=== PATIENT | male | born 1980 | race Caucasian/White ===

== ENCOUNTER 2017-03-11 14:39 | Emergency (ER) | payer OTHER ==
[~2017-03-11] VITALS: Ht 177.8 cm; Wt 76.8 kg
[2017-03-11 14:41] VITALS: BP 138/85; PULSE 75; RESP 22; O2SAT 97
[2017-03-11 16:38] LABS: BASOPHILS % (AUTO) 0.1 % (0-3); EOSINOPHILS % (AUTO) 0 % (0-5)
[2017-03-11] MEDS ORDERED: 0.9% Sodium Chloride 1,000 ML IV STA (16:44)
[2017-03-11] MEDS ORDERED: Ondansetron 2 mg/mL 2 mL Inj IVPUSH ONE (16:45)
[2017-03-11 16:48] LABS: Magnesium 2.1 mg/dL (1.6-2.6)
--- NOTE | 2017-03-11 16:48 | ED.REPORT ---
HPI-NVD Date of Service Mar 11, 2017 ED Provider: Adele Bhatt MD The patient is a 36 year old developmentally delayed male who is presenting to the ED with his mother complaining of frequent vomiting and abdominal pain onset last night. The patient claims that he took Pepto Bismol this morning and vomited 20 minutes later. After vomiting for several hours, the pt now has a bit of blood in his vomit as well. He was seen at 6 months ago with a negative work up (abd xray, CT and US) for similar symptoms. He denies dysuria, diarrhea, SOB, or wheezing. The patient lives in a fpc. Nursing Notes Stated Complaint: VOMITING Chief Complaint: Male Abdominal Pain Nursing Notes Reviewed: Yes Allergies: Coded Allergies: No Known Allergies (Unverified , 03/11/17) General Time Seen by MD: 16:16 Chief Complaint Vomiting Hx Obtained From: Patient, Other family... (Mother) Arrived By: Walk-in Onset Occurred: 5 - 8 hours ago Symptom Duration: Since onset Vomiting: Vomiting blood, Vomiting clear, Vomiting food Associated with: Reports: Abdominal pain Pertinent Negative: Pt denies other symptoms Recent Healthcare: No recent doctor visit, No recent hospitalization Similar Sx Previous: Yes Past Medical History Past Medical History Went to for vomiting with negative work up in August 2016 Past Surgical History denies Smoking History Unknown if Ever Smoker Social History Stays at a fpc Other Social History: Good social support Ambulatory Status Independent Review of Systems GI: Reports: Abdominal pain, Vomiting, Denies: Diarrhea Complete sys rev & neg: except as marked. Respiratory: Denies: Shortness of breath, Wheezing Male: Denies Dysuria Physical Exam Initial Vital Signs Vital Signs (First) Date Time Temp Pulse Resp B/P Pulse Ox O2 Delivery O2 Flow Rate FiO2 03/11/17 14:41 36.9 75 22 138/85 97 Room Air Initial VS: Reviewed, Vital signs normal Head / Eyes: Atraumatic, Normocephalic, PERRL Neck: Supple, Non-tender, Full range of motion Respiratory: Breath sounds normal, Clear to auscultation, No respiratory distress Back: No CVA tenderness Lymphatic: No lymphadenopathy Extremities: Vascular intact, Neuro intact, No swelling, No tenderness Skin: Warm, Dry, No cyanosis Neurologic: Alert, Oriented, Nonfocal Psychiatric: Mood/affect normal, Behavior normal, Normal thought content General/Constitutional: Awake, Alert, Well appearing Well perfused Developmentally delayed but cooperative Abdomen: Soft, Non-tender, McBurney's non-tender, No guarding, No rebound, BS normoactive, No distention, No hernia, No palpable mass Cardiovascular: Heart rate NL, Regular rhythm Heart Sounds / Murmur: Positive: Murmur present... (III/ systolic ejection murmur) Interpretation & Diagnostics Lab Results Interpretation Result Diagram: 03/11/17 1634 03/11/17 1634 Test 03/11/17 16:05 03/11/17 16:34 03/11/17 18:12 Hold Purple Top Tube Received (Received) Hold Blue Top Tube Received (Received) Hold Red Top Tube Received (Received) Hold [place] Top Tube Received (Received) Hold [place] Top Tube Received (Received) White Blood Count 13.5th/mm3 (3.8-10.1) Red Blood Count 5.54mil/mm3 (4.40-5.80) Hemoglobin 17.0g/dL (13.8-17.2) Hematocrit 46.6% (41.0-50.0) Mean Corpuscular Volume 84.1fL (81-100) Mean Corpuscular Hemoglobin 30.7pg (27.0-35.0) Mean Corpuscular Hemoglobin Concent 36.5% (32.0-37.0) Red Cell Distribution Width 12.9% (12.3-15.4) Platelet Count 209bil/L (150-400) Neutrophils (%) (Auto) 87.9% (40-74) Lymphocytes (%) (Auto) 5.9% (14-46) Monocytes (%) (Auto) 5.9% (4-12) Eosinophils (%) (Auto) 0% (0-5) Basophils (%) (Auto) 0.1% (0-3) Sodium Level 141mEq/L (134-144) Potassium Level 3.9mEq/L (3.5-5.2) Chloride Level 100mEq/L (97-108) Carbon Dioxide Level 24mmol/L (18-29) Blood Urea Nitrogen 16mg/dL (6-20) Creatinine 1.32mg/dL (0.76-1.27) Estimat Glomerular Filtration Rate 66mL/min (>59) Glucose Level 102mg/dL (60-99) Calcium Level 9.7mg/dL (8.5-10.1) Magnesium Level 2.1mg/dL (1.6-2.6) Total Bilirubin 1.4mg/dL (0.0-1.2) Aspartate Amino Transf (AST/SGOT) 26U/L (0-50) Alanine Aminotransferase (ALT/SGPT) 24U/L (0-44) Alkaline Phosphatase 86U/L (25-150) Total Protein 7.9g/dL (6.4-8.4) Albumin 4.7g/dL (3.4-5.0) Lipase 57U/L (13-60) Re-Eval/Medical Decision Med Decision/Clinical Course Very pleasant 36-year-old developmentally delayed gentleman visiting with his mother from [place]. Presents with 24 hours of nausea and significant vomiting. No diarrhea no fevers. Had similar symptoms 6 weeks ago was seen at that point and had ultrasound and CT of the abdomen done with no significant findings noted. His mom doesn't note any changes in diet foods or medications. Initially started with 2 L of fluids and Zofran expected him to improve significantly and be discharged. Unfortunately on reevaluation he was continuing to retching violently now having some blood-tinged sputum. Labs do note a slight increase in his creatinine consistent with dehydration due to the volume loss from his vomiting. Abdominal pain is increasing at this point. Has failed attempts at basic intervention and is developing more abdominal pain concern is now for developing surgical/infectious abdominal etiology. Because he is still retching will try IV Phenergan and have ordered a CT scan of the abdomen and pelvis. Patient will be turned over to Dr. Mccartney for further evaluation and final disposition Re-Evaluation/Progress : Time of Eval: 18:24 Patient Status: Condition improved Re-Evaluation/Progress Note: Patient rechecked. Discussed plan to discharge. Patient understands and agrees with plan. All questions addressed at this time. Counseled Regarding: Diagnosis, Lab results, Need for follow-up, When/why to return to ED Discharge & Departure Impression: Primary Impression: Vomiting Additional Impression: Abdominal pain Discharge Condition All VS Reviewed: Yes Condition: Improved Referrals: NOPCP (PCP) Scribe Attestation Portions of this note were transcribed by Camille Hager and Alvarado Royal. I, Dr. Bhatt personally performed the history, physical exam and medical decision -making; I reviewed and confirmed the accuracy of the information in the transcribed note. Signed by: Eric Delgado, 03/11/2017 Adele Bhatt MD Mar 11, 2017 16:48 Mar 11, 2017 17:14 CAMILLE HAGER Mar 11, 2017 17:39
[2017-03-11 16:50] LABS: MONOCYTES % (AUTO) 5.9 % (4-12); Mean Corpuscular Hemoglobin 30.7 pg (27.0-35.0); Mean Corpuscular Volume 84.1 fL (81-100); NEUTROPHILS % (AUTO) 87.9 % (40-74); Platelet Count 209 bil/L (150-400)
[2017-03-11] MEDS ORDERED: Promethazine Inj 50 MG in 0.9% Sodium Chloride-Pha MIX 100 ML IV ONE (18:30)
[2017-03-11] MEDS ORDERED: 0.9% Sodium Chloride 1,000 ML IV ONE (18:45)
[2017-03-11 18:50] LABS: APPEARANCE,URINE CLEAR (CLEAR,HAZY); COLOR,URINE YELLOW (YELLOW); OCCULT BLOOD,URINE SMALL (NEGATIVE); UROBILINOGEN,URINE NORMAL (NORMAL)
--- NOTE | 2017-03-11 19:45 | DRSVH ---
PROCEDURE: CT ABDOMEN AND PELVIS WITH CONTRAST ([id number]) INDICATIONS: abdominal pain and vomitting TECHNIQUE: After the administration of intravenous contrast, 5 mm thick sections acquired from the diaphragm to the symphysis. 5 mm coronal and sagittal reformats were acquired. For radiation dose reduction, the following was used: automated exposure control, adjustment of mA and/or kV according to patient siz e. COMPARISON: None. FINDINGS: Image quality: Excellent. ABDOMEN: Lung bases: Lung bases are clear. Heart size is normal. Solid organs: Liver and spleen are normal in size and enhancement. Gallbladder appears normal. Danilo iary system is non dilated. Pancreas enhances normally. No adrenal nodules. Kidneys demonstrate no rmal size and but subtle asymmetric enhancement, associated with slight hydronephrosis on the right i n addition to slight urothelial enhancement and thickening on the right not seen on the left. This pa ttern extends inferiorly through the right ureter to approximately 2 cm above the ureteral insertion into the posterior bladder on the right, where an impacted 4 x 5 mm calculus is present. Peritoneum and bowel: Bowel loops demonstrate normal wall thickness and caliber. No free fluid or a ir. Nodes and vessels: No retroperitoneal or mesenteric adenopathy by size criteria. Aorta and inferior vena cava are normal in size. Miscellaneous: No ventral hernias. PELVIS: Genitourinary: Bladder wall thickness is normal. Miscellaneous: No inguinal hernias or adenopathy. Bones: No suspicious bony lesions. No vertebral body compression fractures. IMPRESSION: Impacted distal right ureteral stone causes mild hydronephrosis and a subtle finding of asymmetric slight hypoenhancement of the right renal cortex resulting in persistent cortical medullar y differentiation on the right but homogeneous enhancement on the left. Slight urothelial thickening on the right is also associated with this obstructive process. No additional source of current symptoms is found. Dictated by: Duarte Patel M.D. on 03/11/2017 at 19:41 Approved by: Duarte Patel M.D. on 03/11/2017 at 19:44
[2017-03-11] MEDS ORDERED: _Ondansetron ODT 4 mg Tablet PO PRN (20:50)
[2017-03-11 21:05] VITALS: BP 138/85; PULSE 75; RESP 22; O2SAT 97
== END 2017-03-11 21:05 | disposition home or self-care (01) ==
LOC: SED 14:39
DX: R11.10 Vomiting, unspecified (principal); R10.9 Unspecified abdominal pain; N20.1 Calculus of ureter
CPT/HCPCS: 36415; 74177; 80053; 81000; 83690; 83735; 85025; 96361; 96374; 96375; 99285; J2405; J2550; J7030; Q9967